=== PATIENT | female | born 1960 | race Caucasian/White ===

== ENCOUNTER → 2017-01-10 | Outpatient (CLI) | payer MEDICARE ==
--- NOTE | 2017-01-10 09:36 | RAD ---
Indication shortness of breath. Wheezing. Cough. History of asthma. Frontal and lateral views of the chest were obtained. Comparison is made to the most recent examination available 04/07/2012. There is mild cardiomegaly. There are changes in the left mid and lower lung field and to a lesser extent at the right lung base probably reflecting scar. These findings were suggested on the previous exam but are more apparent. There is interstitial prominence in the lungs. Some of this may be chronic representing fibrosis. Interstitial edema or an interstitial inflammatory process are not entirely excluded. There is no consolidated pneumonia. In the left upper lobe there is a density which is probably vascular. A parenchymal mass however is not entirely excluded. CT imaging of the chest should be considered. IMPRESSION: Mild cardiomegaly. Probable chronic pleural-parenchymal changes at the lung bases. Interstitial prominence. Some of this may be chronic. Superimposed edema or interstitial inflammation is not excluded Possible parenchymal mass/nodule in the left upper lobe. CT imaging of the chest should be considered
== END | disposition home or self-care (01) ==
LOC: DXRADRC 09:07
PROVIDERS: ATTEND Physician Assistant
DX: R91.8 Other nonspecific abnormal finding of lung field (principal); I51.7 Cardiomegaly; J45.909 Unspecified asthma, uncomplicated
CPT/HCPCS: 71020

== ENCOUNTER → 2017-01-31 | Outpatient (CLI) | payer MEDICARE ==
--- NOTE | 2017-01-31 13:20 | RAD ---
CT of the chest without contrast, 01/31/2017: History: Possible pulmonary nodule Noncontrast scans were obtained with multiplanar reconstructions produced. There are moderate scattered linear opacities in both lungs. These are most prominent in the medial aspects of both upper lobes and the right middle lobe. The appearance suggests discoid atelectasis and/or scarring. There is a 2 mm nodule in the left lateral costophrenic angle as seen on image 214 of series #4 which appears to be calcified. A similar small dense nodule is seen anteriorly in the right middle lobe on image 128 of series #4. These are compatible with granulomas. There is a tiny 2 mm nodule in the left lower lobe best seen on image 180 of series #4. It does not demonstrate definite calcification, however, a granulomatous origin is likely. No pulmonary mass is identified. There is no evidence of pleural fluid. There is only minimal calcific plaquing of the thoracic aorta without evidence of aneurysm. Moderate coronary artery calcifications are present. Jose calcifications are present at the left hilum. No mediastinal adenopathy is seen. IMPRESSION: 1. Moderate streaky bilateral pulmonary opacities compatible with atelectasis and/or scarring. 2. Several tiny pulmonary nodules are probably granulomas. 3. Extensive coronary artery disease. PQRS Compliance Statement: One or more of the following individualized dose reduction techniques were utilized for this examination: 1. Automated exposure control 2. Adjustment of the mA and/or kV according to patient size 3. Use of iterative reconstruction technique
== END | disposition home or self-care (01) ==
LOC: CT 09:47
PROVIDERS: ATTEND Physician Assistant
DX: I25.10 Atherosclerotic heart disease of native coronary artery without angina pectoris (principal); R91.8 Other nonspecific abnormal finding of lung field
CPT/HCPCS: 71250

== ENCOUNTER → 2017-05-07 | Outpatient (CLI) | payer MEDICARE ==
[~2017-05-07] MED LIST: IOHEXOL 240 MG/ML 50ML VIAL. ONE; IOHEXOL 300 MG/ML 75 ML VIAL. IV ONE
--- NOTE | 2017-05-07 10:19 | RAD ---
Indication abdominal pain. History of intestinal obstruction. Axial images through the abdomen and pelvis were obtained. 75 cc of Omnipaque 300 was administered intravenously. Oral contrast was also administered. No prior CT imaging of the abdomen or pelvis is available. There is some pleural-parenchymal scarring at the lung bases. The liver and spleen appear unremarkable. Clips are seen in the gallbladder fossa. The pancreas appears unremarkable. There are no adrenal masses and the kidneys appear unremarkable. In the pelvis no mass or inflammatory process is seen. There is no evidence of significant mechanical obstruction. IMPRESSION: No acute finding seen in the abdomen or pelvis. No evidence of significant mechanical obstruction seen. PQRS Compliance Statement: One or more of the following individualized dose reduction techniques were utilized for this examination: 1. Automated exposure control 2. Adjustment of the mA and/or kV according to patient size 3. Use of iterative reconstruction technique
== END | disposition home or self-care (01) ==
LOC: CT 08:39
PROVIDERS: ATTEND General Practice
DX: R10.84 Generalized abdominal pain (principal); J98.4 Other disorders of lung; I10 Essential (primary) hypertension; I25.10 Atherosclerotic heart disease of native coronary artery without angina pectoris; J45.909 Unspecified asthma, uncomplicated; Z87.19 Personal history of other diseases of the digestive system
CPT/HCPCS: 74177; Q9966; Q9967

== ENCOUNTER 2017-08-30 14:40 | Inpatient (IN) | payer MEDICARE ==
[~2017-08-30] VITALS: Ht 165.1 cm; Wt 153.0 kg
[2017-08-30] MEDS ORDERED: IV NORMAL SALINE 1,000ML 1,000 ML IV SCH (14:51)
[2017-08-30] MEDS ORDERED: ACETAMINOPHEN 500 MG TABLET PO ONE (15:30)
[2017-08-30] MEDS ORDERED: methylPREDNISolone SOD SUCC PF 125 MG/2 ML VIAL. IV ONE (15:30)
[2017-08-30] MEDS ORDERED: IPRATRPIUM/ALBUTEROL 0.5/2.5MG 3 ML NEBU. NEB ONE (15:30)
--- NOTE | 2017-08-30 15:43 | EKG ---
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 POSSIBLY ABNORMAL ECG RI6.01 No previous ECG available for comparison Electronically Signed On 09-01-2017 16:34:02 JEWEL SAWYER by Odell Camilo
[2017-08-30 15:48] LABS: INFLUENZA A PATIENT NEGATIVE (NEGATIVE); INFLUENZA B PATIENT NEGATIVE (NEGATIVE)
[2017-08-30 15:53] LABS: BASO % 1 % (0-3); EOS # 0.1 x10^3/uL (0.0-0.7); EOS % 2 % (0-3); HEMOGLOBIN 13.9 g/dL (12.0-15.5); LYMPH # 0.6 x10^3/uL (1.0-4.8); LYMPH % 8 % (24-48); MEAN CORPUSCULAR HEMOGLOBIN 28 pg (25-35); MEAN CORPUSCULAR HGB CONC 33 g/dL (31-37); MEAN CORPUSCULAR VOLUME 85 fL (79-100); MONO # 0.7 x10^3/uL (0.0-1.1); MONO % 9 % (0-9); NEUT # 6.3 x10^3uL (1.8-7.7); NEUT % 81 % (31-73); PLATELET COUNT 224 x10^3/uL (140-400); RED BLOOD COUNT 4.97 x10^6/uL (3.50-5.40); RED CELL DISTRIBUTION WIDTH 14.6 % (11.5-14.5); WHITE BLOOD COUNT 7.7 x10^3/uL (4.0-11.0)
[2017-08-30] MEDS: cefTRIAXone IV Push 1 GM VIAL. IVP SCH (17:02)
[2017-08-30 17:14] LABS: ALBUMIN 3.1 g/dL (3.4-5.0); ALBUMIN/GLOBULIN RATIO 0.8 (1.0-1.7); CALCIUM 8.7 mg/dL (8.5-10.1); CREATININE 0.9 mg/dL (0.6-1.0); GFR 64.3; POTASSIUM 4.6 mmol/L (3.5-5.1); TOTAL BILIRUBIN 0.4 mg/dL (0.2-1.0)
--- NOTE | 2017-08-30 17:58 | PHYS DOC ---
Adult General Chief Complaint Chief Complaint: SHORTNESS OF BREATH HPI HPI 57-year-old male patient with altered obesity and history of COPD without home oxygen complaining of productive cough with nasal congestion for the last 2 days. Patient complaining of increasing of shortness of breath and called 911. EMS reported that she had O2 sats of 85% at that improved with 2 L of oxygen to 94%. Patient complaining of generalized weakness and subjective fever and chills. Patient was febrile at arrival to ER. Review of Systems Review of Systems Constitutional: Reports fever and chills Eyes: Denies change in visual acuity, redness, or eye pain [] HENT: Reports nasal congestion or sore throat Respiratory: Reports cough and shortness of breath Cardiovascular: No additional information not addressed in HPI [] GI: Denies abdominal pain, nausea, vomiting, bloody stools or diarrhea [] : Denies dysuria or hematuria [] Musculoskeletal: Denies back pain or joint pain [] Integument: Denies rash or skin lesions [] Neurologic: Denies headache, focal weakness or sensory changes [] Endocrine: Denies polyuria or polydipsia [] All other systems were reviewed and found to be within normal limits, except as documented in this note. Current Medications Current Medications Current Medications Medications (Trade) Dose Ordered Sig/Breanna Start Time Stop Time Status Last Admin Dose Admin Acetaminophen (Tylenol) 1,000 mg 1X ONCE 08/30/17 15:30 08/30/17 15:31 DC 08/30/17 15:47 1,000 MG Albuterol/ Ipratropium (Duoneb) 3 ml 1X ONCE 08/30/17 15:30 08/30/17 15:31 DC 08/30/17 15:45 3 ML Ceftriaxone Sodium 1 gm/ Sodium Chloride 50 ml @ 100 mls/hr 1X ONCE 08/30/17 16:30 08/30/17 16:59 UNV Ceftriaxone Sodium (Rocephin) 1 gm Q24H 08/30/17 17:00 08/30/17 17:02 1 GM Methylprednisolone Sodium Succinate (SOLU-Medrol 125MG VIAL) 125 mg 1X ONCE 08/30/17 15:30 08/30/17 15:31 DC 08/30/17 15:47 125 MG Sodium Chloride 1,000 ml @ 1,000 mls/hr Q1H 08/30/17 14:51 08/30/17 15:50 DC 08/30/17 15:47 1,000 MLS/HR Allergies Allergies Allergies Coded Allergies Type Severity Reaction Last Updated Verified No Known Drug Allergies 05/07/17 No Physical Exam Physical Exam Constitutional: Well nourished, mild distress, non-toxic appearance, febrile. [ ] HENT: Normocephalic, atraumatic, bilateral external ears normal, oropharynx moist, pharyngeal erythema, no oral exudates, nose normal. [] Eyes: PERRLA, EOMI, conjunctiva normal, no discharge. [] Neck: Normal range of motion, no tenderness, supple, no stridor. [] Cardiovascular: Tachycardia, no murmur [] Lungs & Thorax: decreased of air movement, Abdomen: Bowel sounds normal, soft, no tenderness, no masses, no pulsatile masses. [] Skin: Left lower extremity chronic edema and erythema Back: No tenderness, no CVA tenderness. [] Extremities: No tenderness, no cyanosis, no clubbing, ROM intact, trace edema. [ ] Neurologic: Alert and oriented X 3, normal motor function, normal sensory function, no focal deficits noted. [] Psychologic: Affect normal, judgement normal, mood normal. [] Current Patient Data Vital Signs Vital Signs Date Time Temp Pulse Resp B/P (MAP) Pulse Ox O2 Delivery O2 Flow Rate FiO2 08/30/17 16:26 94 Nasal Cannula 3.0 Lab Results Laboratory Tests Test 08/30/17 15:10 08/30/17 15:35 08/30/17 16:32 Influenza Type A (Rapid) Negative (NEGATIVE) Influenza Type B (Rapid) Negative (NEGATIVE) White Blood Count 7.7 x10^3/uL (4.0-11.0) Red Blood Count 4.97 x10^6/uL (3.50-5.40) Hemoglobin 13.9 g/dL (12.0-15.5) Hematocrit 42.0 % (36.0-47.0) Mean Corpuscular Volume 85 fL (79-100) Mean Corpuscular Hemoglobin 28 pg (25-35) Mean Corpuscular Hemoglobin Concent 33 g/dL (31-37) Red Cell Distribution Width 14.6 % (11.5-14.5) H Platelet Count 224 x10^3/uL (140-400) Neutrophils (%) (Auto) 81 % (31-73) H Lymphocytes (%) (Auto) 8 % (24-48) L Monocytes (%) (Auto) 9 % (0-9) Eosinophils (%) (Auto) 2 % (0-3) Basophils (%) (Auto) 1 % (0-3) Neutrophils # (Auto) 6.3 x10^3uL (1.8-7.7) Lymphocytes # (Auto) 0.6 x10^3/uL (1.0-4.8) L Monocytes # (Auto) 0.7 x10^3/uL (0.0-1.1) Eosinophils # (Auto) 0.1 x10^3/uL (0.0-0.7) Basophils # (Auto) 0.0 x10^3/uL (0.0-0.2) Sodium Level 131 mmol/L (136-145) L Potassium Level 4.6 mmol/L (3.5-5.1) Chloride Level 95 mmol/L (98-107) L Carbon Dioxide Level 31 mmol/L (21-32) Anion Gap 5 (6-14) L Blood Urea Nitrogen 14 mg/dL (7-20) Creatinine 0.9 mg/dL (0.6-1.0) Estimated GFR (Cockcroft-Gault) 64.3 BUN/Creatinine Ratio 16 (6-20) Glucose Level 304 mg/dL (70-99) H Lactic Acid Level 1.8 mmol/L (0.4-2.0) Calcium Level 8.7 mg/dL (8.5-10.1) Total Bilirubin 0.4 mg/dL (0.2-1.0) Aspartate Amino Transferase (AST) 10 U/L (15-37) L Alanine Aminotransferase (ALT) 17 U/L (14-59) Alkaline Phosphatase 100 U/L (46-116) Troponin I Quantitative 0.031 ng/mL (0-0.055) MQ-Yif-Q-Type Natriuretic Peptide 549 pg/mL (0-124) H Total Protein 7.0 g/dL (6.4-8.2) Albumin 3.1 g/dL (3.4-5.0) L Albumin/Globulin Ratio 0.8 (1.0-1.7) L EKG EKG EKG interpreted by me. EKG at 1537 showed heart rate of 102 with sinus tachycardia, left axis deviation, poor R-wave progress in anteroseptal dates, no acute ST and T-wave elevation Radiology/Procedures Radiology/Procedures Chest x-ray interpreted by me and did not show acute finding[] Course & Med Decision Making Course & Med Decision Making Pertinent Labs and Imaging studies reviewed. (See chart for details) Evaluation of patient in ER showed 57-year-old female patient brought in by EMS because of hypoxia patient had temperature of 101 at arrival to ER. Patient treated with IV fluid and Tylenol and albuterol and DuoNeb and felt better. For a test was negative. Chest x-ray did not show infiltration in patient did not have leukocytosis on elevation of lactic acid. Patient had O2 sats of 92% with 2 L of oxygen and did not tolerate ABG blood draw and refused to have ABG. Plan to admit patient with diagnosis of COPD exacerbation and hypoxia. Dr. Monet accepted admission at 1735. Dragon Disclaimer Dragon Disclaimer This electronic medical record was generated, in whole or in part, using a voice recognition dictation system. Departure Departure: Impression: Primary Impression: COPD exacerbation Additional Impressions: Hypoxia Fever Uncontrolled diabetes mellitus Morbid obesity Elevated brain natriuretic peptide (BNP) level Disposition: 09 ADMITTED INPATIENT (At 1745) Admitting Physician: Vicki Monet Condition: IMPROVED Referrals: LONNIE VILLARREAL (PCP) Problem Qualifiers MARILYN YU MD Aug 30, 2017 17:57
[2017-08-30] MEDS: IPRATRPIUM/ALBUTEROL 0.5/2.5MG 3 ML NEBU. NEB SCH (20:15)
[2017-08-30] MEDS ORDERED: DEXTROSE 50% 25 GM / 50ML DISP.SYRIN. IV PRN (20:30)
--- NOTE | 2017-08-30 20:39 | RAD ---
Exam: AP portable chest History: Shortness of breath. Comparison: None. Findings: Examination is limited as there is thought to be underpenetration secondary to patient body habitus. Cardiac silhouette is probably at least at the upper limits of normal for size. No pneumothorax or gross pleural effusion is seen. Pulmonary vascularity may be increased. Evaluation for infiltrate is limited. Impression: 1. Limited examination. 2. There may be pulmonary vascular congestion. 3. Evaluation for infiltrate in the lower lung hoffman is limited. Electronically signed by: Santi Lima MD (08/30/2017 8:36 PM) [facility]
[2017-08-30] MEDS ORDERED: INSU100I27 SQ (21:11)
[2017-08-30] MEDS ORDERED: DIPH50CA PO (21:11)
[2017-08-30] MEDS ORDERED: METF10002 PO (21:11)
[2017-08-30] MEDS ORDERED: CARV25TA2 PO (21:11)
[2017-08-30] MEDS ORDERED: GLIM4TAB2 PO (21:11)
[2017-08-30] MEDS ORDERED: PRAV40TA2 PO (21:11)
[2017-08-30] MEDS ORDERED: FURO40TA4 PO (21:11)
[2017-08-30] MEDS ORDERED: CLOP75TA PO (21:11)
[2017-08-30] MEDS ORDERED: DULO60CA6 PO (21:11)
[2017-08-30] MEDS ORDERED: GABA600T2 PO (21:11)
[2017-08-30] MEDS ORDERED: BUDE10.2 IH (21:11)
[2017-08-30] MEDS ORDERED: LISI10TA2 PO (21:11)
[2017-08-30] MEDS: LACTOBACILLUS RHAMNOSUS GG 1 CAPSULE. PO SCH (22:15)
[2017-08-30] MEDS: CLOPIDOGREL BISULFATE 75 MG TABLET PO SCH (22:15)
[2017-08-30] MEDS: IV NORMAL SALINE 1,000ML 1,000 ML IV SCH (22:15)
[2017-08-30] MEDS: GABAPENTIN 400 MG CAPSULE. PO SCH (22:16)
[2017-08-30] MEDS: diphenhydrAMINE HCL 25 MG CAPSULE PO SCH (22:16)
[2017-08-30] MEDS: ATORVASTATIN CALCIUM 10 MG TABLET. PO SCH (22:16)
[2017-08-30] MEDS: CARVEDILOL 12.5 MG TABLET PO SCH (22:16)
[2017-08-30 22:26] VITALS: BP 165/82
[2017-08-30] MEDS: INSULIN DETEMIR 300 UNITS/3 ML INSULN.PEN. SQ SCH (23:50)
[2017-08-30] MEDS: INSULIN ASPART 300 UNITS/3 ML INSULN.PEN SQ SCH (23:51)
[2017-08-31] MEDS: IPRATRPIUM/ALBUTEROL 0.5/2.5MG 3 ML NEBU. NEB SCH ×4 (06:10→20:00)
[2017-08-31] MEDS: IV NORMAL SALINE 1,000ML 1,000 ML IV SCH ×2 (06:30→16:30)
[2017-08-31 06:52] VITALS: BP 173/71
[2017-08-31 07:22] LABS: CALCIUM 8.7 mg/dL (8.5-10.1); CREATININE 0.6 mg/dL (0.6-1.0); GFR 102.7; MAGNESIUM 1.7 mg/dL (1.8-2.4); POTASSIUM 4.7 mmol/L (3.5-5.1)
[2017-08-31] MEDS: metFORMIN 500 MG TABLET PO SCH ×2 (07:59→17:11)
[2017-08-31] MEDS: LACTOBACILLUS RHAMNOSUS GG 1 CAPSULE. PO SCH ×2 (08:00→20:46)
[2017-08-31] MEDS: LISINOPRIL 10 MG TABLET PO SCH (08:00)
[2017-08-31] MEDS: CARVEDILOL 12.5 MG TABLET PO SCH ×2 (08:00→17:11)
[2017-08-31] MEDS: FUROSEMIDE 40 MG TABLET PO SCH (08:00)
[2017-08-31] MEDS: GABAPENTIN 400 MG CAPSULE. PO SCH ×2 (08:01→20:45)
[2017-08-31] MEDS: DULoxetine HCL 60 MG CAPSULE.DR PO SCH (08:01)
[2017-08-31] MEDS: GLIMEPIRIDE 2 MG TABLET PO SCH ×2 (08:01→17:11)
[2017-08-31] MEDS: INSULIN ASPART 300 UNITS/3 ML INSULN.PEN SQ SCH ×4 (08:08→22:42)
[2017-08-31] MEDS: methylPREDNISolone SOD SUCC PF 40 MG/ML VIAL. IV SCH ×2 (09:39→20:45)
[2017-08-31] MEDS: ENOXAPARIN ** NOTE DOSE ** SYRINGE SQ SCH ×2 (09:40→22:42)
[2017-08-31] MEDS: INSULIN DETEMIR 300 UNITS/3 ML INSULN.PEN. SQ SCH ×2 (09:46→22:41)
[2017-08-31 09:48] LABS: BASO % 0 % (0-3); EOS % 0 % (0-3); HEMOGLOBIN 13.5 g/dL (12.0-15.5); LYMPH # 0.6 x10^3/uL (1.0-4.8); LYMPH % 12 % (24-48); MEAN CORPUSCULAR HEMOGLOBIN 28 pg (25-35); MEAN CORPUSCULAR HGB CONC 33 g/dL (31-37); MEAN CORPUSCULAR VOLUME 86 fL (79-100); MONO # 0.4 x10^3/uL (0.0-1.1); MONO % 9 % (0-9); NEUT # 3.8 x10^3uL (1.8-7.7); NEUT % 78 % (31-73); PLATELET COUNT 218 x10^3/uL (140-400); RED CELL DISTRIBUTION WIDTH 14.7 % (11.5-14.5); WHITE BLOOD COUNT 4.8 x10^3/uL (4.0-11.0)
--- NOTE | 2017-08-31 09:50 | HP ---
ADMIT DATE: 08/30/2017 REASON FOR ADMISSION: Shortness of breath. HISTORY OF PRESENT ILLNESS: This is a 57-year-old female with morbid obesity and history of COPD, who presented with complaints of a 2-day history of a cough, sputum production and congestion for 2 days with increasingly short of breath. She called 911 and her O2 sats were 85% at that time, they improved with 2 liters of oxygen to 94%. Also, reported temperature of 102 at home and some chills. PAST MEDICAL HISTORY: Morbid obesity, diabetes, hypertension, hypothyroidism, coronary artery disease with 10 stents, COPD. PAST SURGICAL HISTORY: Stent placement. She states she has 10 stents, 2004, 2006, 2008 and 2010. ALLERGIES: None. MEDICATIONS: Reviewed and reconciled. REVIEW OF SYSTEMS: Positive for fever, chills. HABITS: Quit smoking in 2003. No alcohol. REVIEW OF SYSTEMS: Positive for problems with her weight. No exercise. No urinary urgency or frequency. Denies sore throat. Positive yellow sputum. Positive shortness of breath, no chest pain. OBJECTIVE: VITAL SIGNS: Blood pressure 173/71, pulse 81, temperature 97.7, pulse ox 94% on 3 liters. Initial temperature was 100.6. HEENT: The patient's external canals are normal. Her eyes are clear. Throat with some postnasal drip, slightly green-tinged. NECK: Supple, without adenopathy. LUNGS: With a few scattered wheezes. CARDIOVASCULAR: Regular rhythm and rate. ABDOMEN: Large and obese, nontender. EXTREMITIES: Without edema. LABORATORY DATA: Normal CBC. Chemistry, glucoses in the 300s, magnesium 1.7. BNP 549. Troponin was 0.031, now it is 0.017. IMAGING: Chest x-ray shows some probable pulmonary vascular congestion, no pneumonia. ASSESSMENT: 1. Possible mild congestive heart failure. 2. Acute bronchitis. 3. Chronic obstructive pulmonary disease. 4. Hypoxemia. 5. Morbid obesity. 6. Type 2 diabetes with hyperglycemia. PLAN: Echocardiogram. Continue Lasix. Continue oxygen, breathing treatments and switch her to doxycycline from ceftriaxone. NAS RAMIREZ DO DR: DEEPTI/siri JOB#: [id number] / [id number]
[2017-08-31 11:21] VITALS: BP 179/95
[2017-08-31] MEDS ORDERED: cloNIDine HCL 0.1 MG TABLET PO ONE (11:45)
[2017-08-31] MEDS ORDERED: cloNIDine HCL 0.1 MG TABLET PO PRN (11:45)
[2017-08-31 15:08] VITALS: BP 168/82
[2017-08-31] MEDS ORDERED: INSULIN ASPART 300 UNITS/3 ML INSULN.PEN SQ ONE (17:00)
[2017-08-31] MEDS: cefTRIAXone IV Push 1 GM VIAL. IVP SCH (17:18)
[2017-08-31 19:33] VITALS: BP 134/69
[2017-08-31] MEDS: diphenhydrAMINE HCL 25 MG CAPSULE PO SCH (20:45)
[2017-08-31] MEDS: ATORVASTATIN CALCIUM 10 MG TABLET. PO SCH (20:46)
[2017-08-31] MEDS: CLOPIDOGREL BISULFATE 75 MG TABLET PO SCH (20:46)
[2017-08-31 23:35] VITALS: BP 164/70
[2017-09-01] MEDS: IPRATRPIUM/ALBUTEROL 0.5/2.5MG 3 ML NEBU. NEB SCH ×3 (06:20→16:00)
[2017-09-01 06:30] VITALS: BP 146/64
[2017-09-01] MEDS ORDERED: INSULIN DETEMIR 300 UNITS/3 ML INSULN.PEN. SQ SCH (07:00)
[2017-09-01] MEDS: GLIMEPIRIDE 2 MG TABLET PO SCH (08:16)
[2017-09-01] MEDS: CARVEDILOL 12.5 MG TABLET PO SCH (08:17)
[2017-09-01] MEDS: metFORMIN 500 MG TABLET PO SCH (08:24)
[2017-09-01] MEDS: DULoxetine HCL 60 MG CAPSULE.DR PO SCH (08:25)
[2017-09-01] MEDS: LACTOBACILLUS RHAMNOSUS GG 1 CAPSULE. PO SCH (08:25)
[2017-09-01] MEDS: GABAPENTIN 400 MG CAPSULE. PO SCH (08:26)
[2017-09-01] MEDS: FUROSEMIDE 40 MG TABLET PO SCH (08:27)
[2017-09-01] MEDS: LISINOPRIL 10 MG TABLET PO SCH (08:27)
[2017-09-01] MEDS: INSULIN ASPART 300 UNITS/3 ML INSULN.PEN SQ SCH ×3 (09:00→16:53)
[2017-09-01] MEDS: INSULIN DETEMIR 300 UNITS/3 ML INSULN.PEN. SQ SCH (09:00)
[2017-09-01 09:59] VITALS: BP 184/64
[2017-09-01] MEDS: ENOXAPARIN ** NOTE DOSE ** SYRINGE SQ SCH (10:27)
[2017-09-01] MEDS: methylPREDNISolone SOD SUCC PF 40 MG/ML VIAL. IV SCH (10:28)
[2017-09-01 15:02] VITALS: BP 192/87
[2017-09-01 15:04] VITALS: BP 172/98
[2017-09-01] MEDS ORDERED: DOXY100C2 PO (15:14)
--- NOTE | 2017-09-01 15:43 | CARD ---
MR#: [id number] Date of Study: 09/01/2017 Ordering Physician: NAS RAMIREZ, Referring Physician: NAS RAMIREZ Tech: Ghassan Palacios [facility] APPROVED REPORT EXAM: Two-dimensional and M-mode echocardiogram with Doppler and color Doppler. Other Information Quality : AverageHR: 84bpm INDICATION COPD Cardiomyopathy RISK FACTORS Hypertension Obesity Family History Smoking 2D DIMENSIONS Left Atrium(2D)4.1 (1.6-4.0cm)IVSd1.7 (0.7-1.1cm) Aortic Root(2D)2.7 (2.0-3.7cm)LVDd4.1 (3.9-5.9cm) LVOT Diameter2.0 (1.8-2.4cm)PWd1.6 (0.7-1.1cm) LVDs3.0 (2.5-4.0cm)FS (%) 27.6 % SV40.5 mlLVEF(%)54.0 (>50%) Aortic Valve AoV Peak Sylvain.169.8cm/sAoV VTI36.9cm AO Peak GR.11.5mmHgLVOT Peak Sylvain.101.4cm/s LVOT VTI 29.51cmAO Mean GR.6mmHg DAVIDE (VMAX)1.33ek8SBF (VTI)2.55cm2 Mitral Valve MV E Yeylrfag377.8cm/sMV DECEL BHAJ609hw MV A Pxbwfbxj698.4cm/sE/A Ratio1.2 Pulmonary Valve PV Peak Kzswjmiq19.3cm/sPV Peak Grad.4mmHg Pulmonary Vein S1 Gsloiybh96.8cm/sD2 Nptbbtpm83.8cm/s LEFT VENTRICLE Technically difficult study. The left ventricle is normal size. There is mild concentric left ventric ular hypertrophy. The left ventricular systolic function is normal. Left ventricular ejection fractio n is 55-60%. There is normal LV segmental wall motion. The left ventricular diastolic function and fi lling is normal for age. RIGHT VENTRICLE The right ventricle is normal size. The right ventricle is mildly hypertrophied. The right ventricula r systolic function is normal. ATRIA The left atrium is borderline dilated. The right atrium is not well visualized. The interatrial septu m is intact with no evidence for an atrial septal defect or patent foramen ovale as noted on 2-D or D oppler imaging. AORTIC VALVE The aortic valve is thickened but opens well. Doppler and Color Flow revealed no significant aortic r egurgitation. There is no significant aortic valvular stenosis. There is no aortic valvular vegetatio n. MITRAL VALVE Mitral annular calcification is mild. The mitral valve is thickened but opens well. There is no evide nce of mitral valve prolapse. There is no mitral valve stenosis. Doppler and Color Flow revealed trac e mitral valve regurgitation. TRICUSPID VALVE The tricuspid valve is not well visualized. Doppler and Color Flow revealed trace tricuspid regurgita tion. There is no tricuspid valve stenosis. PULMONIC VALVE The pulmonic valve is not well visualized. Doppler and Color Flow revealed no pulmonic valvular regur gitation. There is no pulmonic valvular stenosis. GREAT VESSELS The aortic root is normal in size. The IVC is dilated. The IVC collapses <50% with inspiration. PERICARDIAL EFFUSION There is no pleural effusion. There is no evidence of significant pericardial effusion. Critical Notification Critical Value: No <Conclusion> Technically difficult study. The left ventricle is normal size. The left ventricular systolic function is normal. Left ventricular ejection fraction is 55-60%. There is mild concentric left ventricular hypertrophy. There is no significant aortic valvular stenosis. Doppler and Color Flow revealed no significant aortic regurgitation. Doppler and Color Flow revealed trace mitral valve regurgitation. Doppler and Color Flow revealed trace tricuspid regurgitation. Signed by : Odell Camilo MD Electronically Approved : 09/01/2017 15:43:01
--- NOTE | 2017-09-01 21:58 | DS ---
DATE OF DISCHARGE: 09/01/2017 HOSPITAL COURSE: The patient was admitted with acute bronchitis, chronic obstructive pulmonary disease exacerbation and hypoxemia. She was treated with IV antibiotic and steroids and she is did actually very well. PHYSICAL EXAMINATION: GENERAL: When I saw her today, she was sitting comfortably in her chair, in no apparent respiratory distress, pale, but no jaundice, cyanosis, lymphadenopathy or thyromegaly. No jugular venous distention. No limb edema. VITAL SIGNS: Her heart rate was 71, blood pressure was 170/60, temperature was 97.6, respiratory rate was 20, and oxygen saturation was 94%. HEAD, EYES, EARS, NOSE AND THROAT: Normocephalic, atraumatic. NECK: Supple. HEART: Showed normal first and second sounds. No gallop, rub or murmur. CHEST: Clear to auscultation. No crepitation or rhonchi. ABDOMEN: Distended, soft, nontender. NEUROLOGIC: She was awake, alert, responding appropriately. EXTREMITIES: Intact. She moves extremities without difficulty, ambulates without assistance or assistive devices. LABORATORY DATA: Her lab work this morning showed a white cell count 4800, hemoglobin 13.5, hematocrit 41, MCV 86 and platelet count of 218,000. Her chemistry showed a serum sodium 136, potassium 4.7, chloride 100, bicarbonate 28, anion gap of 8, BUN 15, creatinine 0.6, estimated GFR was 103 mL per minute. Her calcium was 8.7 and magnesium was 1.7. DISCHARGE MEDICATIONS: The patient will be discharged home to continue on her lisinopril 10 mg once a day, furosemide 40 mg once a day, duloxetine 60 mg once a day, metformin 1000 mg p.o. b.i.d., glimepiride 4 mg twice a day, atorvastatin 10 mg at bedtime, gabapentin 1200 mg twice a day, diphenhydramine 50 mg at bedtime, carvedilol 25 mg twice a day with meals, Levemir insulin 35 units at bedtime, Plavix 75 mg once a day, lactobacillus rhamnosus 1 capsule twice a day and DuoNeb 4 times a day. She will be discharged on doxycycline 100 mg twice a day for 7 more days and tapering a course of steroids. FINAL DISCHARGE DIAGNOSES: 1. Acute bronchitis. 2. Chronic obstructive pulmonary disease exacerbation. 3. Hypertension. 4. Type 2 diabetes. 5. Hypothyroidism. 6. Morbid obesity. 7. Coronary artery disease, status post 10 stents. JORDANA MEHTA MD DR: PANCHITO/siri JOB#: [id number] / [id number]
== END 2017-09-01 17:04 | disposition home or self-care (01) | DRG 871 ==
LOC: ER 14:40 → 1 SOUTH 17:45
PROVIDERS: ADMIT Family Medicine; ATTEND Family Medicine
DX: A41.9 Sepsis, unspecified organism (principal); J96.21 Acute and chronic respiratory failure with hypoxia; I50.32 Chronic diastolic (congestive) heart failure; J44.0 Chronic obstructive pulmonary disease with (acute) lower respiratory infection; Z68.43 Body mass index [BMI] 50.0-59.9, adult; J44.1 Chronic obstructive pulmonary disease with (acute) exacerbation; E11.65 Type 2 diabetes mellitus with hyperglycemia; E66.01 Morbid (severe) obesity due to excess calories; J20.9 Acute bronchitis, unspecified; I10 Essential (primary) hypertension; E03.9 Hypothyroidism, unspecified; I25.10 Atherosclerotic heart disease of native coronary artery without angina pectoris; Z87.891 Personal history of nicotine dependence; Z95.5 Presence of coronary angioplasty implant and graft
CPT/HCPCS: 36415; 71045; 80048; 80053; 82947; 83605; 83735; 83880; 84484; 85025; 87040; 87804; 93005; 93306; 94640; 96361; 96374; J0696; J1650; J1815; J2920; J2930; J7620; Q0163; 99285-25; J7030

== ENCOUNTER 2019-08-17 00:50 | Emergency (ER) | payer MEDICARE ==
[~2019-08-17] VITALS: Ht 317.5 cm; Wt 125.0 kg
[~2019-08-17 00:50] MED LIST changes: +BUDE10.2 IH; +CARV25TA2 PO; +CLOP75TA PO; +DIPH50CA PO; +DOXY100C2 PO; +DULO60CA6 PO; +FURO40TA4 PO; +GABA600T7 PO; +GLIM4TAB8 PO; +INSU100I27 SQ; -IOHEXOL 240 MG/ML 50ML VIAL. ONE; -IOHEXOL 300 MG/ML 75 ML VIAL. IV ONE; +LISI10TA2 PO; +METF10007 PO; +PRAV40TA2 PO
--- NOTE | 2019-08-17 00:59 | PHYS DOC ---
Past History Past Medical History: COPD, Diabetes, Hypertension, Other Past Surgical History: No Surgical History Alcohol Use: None Drug Use: None Adult General Chief Complaint Chief Complaint: chest pain [facility] HPI Patient is a 59-year-old female who presents with complaint of left-sided chest pain that started earlier this evening. She also indicates that she is having shortness of breath. Patient rates pain at a 6 to a 7 out of 10. She states that she has had some nausea but no vomiting. Patient is not aware of any exacerbating or alleviating factors. She does indicate that she has a history of COPD and wears oxygen at all times. Per EMS, first responders on scene had measured patient's oxygen saturation is 74% on 3 L. They do indicate that patient's auction tubing was very long. Patient describes pain in her chest as like a deep, dull ache. She states that radiates up her left neck.[] Review of Systems Review of Systems Constitutional: Denies fever or chills [] Respiratory: Complains of shortness of breath [] Cardiovascular: No additional information not addressed in HPI [] GI: Denies abdominal pain, nausea, vomiting or diarrhea [] Integument: Denies rash or skin lesions [] Neurologic: Denies headache, focal weakness or sensory changes [] All other systems were reviewed and found to be within normal limits, except as documented in this note. Allergies Allergies Allergies Coded Allergies Type Severity Reaction Last Updated Verified No Known Drug Allergies 05/07/17 No Physical Exam Physical Exam Constitutional: Well developed, well nourished, no acute distress, non-toxic appearance. [] HENT: Normocephalic, atraumatic, bilateral external ears normal, oropharynx m oist, no oral exudates, nose normal. [] Eyes: PERRLA, EOMI, conjunctiva normal, no discharge. [] Neck: Normal range of motion, no tenderness, supple, no stridor. [] Cardiovascular: Regular rate and rhythm[] Lungs & Thorax: Fine rhonchi are noted bilaterally to auscultation [] Abdomen: Bowel sounds normal, soft, no tenderness. [] Skin: Warm, dry, no erythema, no rash. [] Extremities: No tenderness, no cyanosis, no clubbing, ROM intact, with 2-3+ lower extremity pitting edema. [] Neurologic: Alert and oriented X 3, no focal deficits noted. [] EKG EKG EKG demonstrates normal sinus rhythm with rate of 79.[] Radiology/Procedures Radiology/Procedures [] Impressions: PROCEDURE: PORTABLE CHEST 1V EXAM: AP View of the chest DATE: 08/17/2019 12:54 AM INDICATION: Chest pain COMPARISON: 08/30/2017 FINDINGS: Cardiomegaly with bilateral perihilar and lung base airspace opacities and bilateral pleural effusions. No pneumothorax. The patient's chin obscures the lung apices. IMPRESSION: Cardiomegaly with bilateral perihilar and lung base airspace opacities and bilateral pleural effusions. Although these findings are favored to represent pulmonary edema, multifocal pneumonia would also similar appearance. Electronically signed by: Alonzo Mccabe MD (08/17/2019 2:14 AM) [facility] [id number] Course & Med Decision Making Course & Med Decision Making Pertinent Labs and Imaging studies reviewed. (See chart for details) Patient moved to room upon arrival was evaluated by your medical staff after w hich an IV was established and blood work was drawn. Patient given IV morphine for pain. Patient did have resolution of pain after receiving morphine. Blood work is returned with significant findings to include markedly elevated blood sugar for which she has been treated with IV insulin along with elevated BNP and troponin. Chest x-ray is consistent with CHF. Patient has been given IV Lasix, 60 mg. Patient is also being initiated on IV heparin protocol. Upon completion of workup, findings were reviewed with patient and family and patient is requesting transfer to [facility] as that is where all of her specialty care is. [facility] has been contacted and Dr. Harkins will accept patient in transfer. Dragdinesh Disclaimer Vannesa Disclaimer This electronic medical record was generated, in whole or in part, using a voice recognition dictation system. Departure Departure: Impression: Primary Impression: NSTEMI (non-ST elevated myocardial infarction) Additional Impressions: CHF (congestive heart failure) Uncontrolled type 2 diabetes mellitus with hyperglycemia Disposition: 02 XFER SHT-TRM HOSP Condition: IMPROVED Referrals: LONNIE VILLARREAL (PCP) Problem Qualifiers Additional Impressions: CHF (congestive heart failure) Heart failure type: unspecified Heart failure chronicity: unspecified Qualified Codes: I50.9 - Heart failure, unspecified STEPHANIE BLANCO Jr. DO Aug 17, 2019 00:59
[2019-08-17] MEDS ORDERED: MORPHINE SULFATE 4 MG/ML DISP.SYRIN. IV/SQ PRN (01:00)
[2019-08-17] MEDS ORDERED: ONDANSETRON PF 4 MG/2 ML VIAL. IVP ONE (01:15)
[2019-08-17 01:49] LABS: BASO % 1 % (0-3); EOS # 0.3 x10^3/uL (0.0-0.7); EOS % 5 % (0-3); HEMATOCRIT 30.8 % (36.0-47.0); HEMOGLOBIN 9.4 g/dL (12.0-15.5); LYMPH # 0.8 x10^3/uL (1.0-4.8); LYMPH % 17 % (24-48); MEAN CORPUSCULAR HEMOGLOBIN 26 pg (25-35); MEAN CORPUSCULAR HGB CONC 31 g/dL (31-37); MEAN CORPUSCULAR VOLUME 84 fL (79-100); MONO # 0.5 x10^3/uL (0.0-1.1); MONO % 11 % (0-9); NEUT # 3.3 x10^3uL (1.8-7.7); NEUT % 66 % (31-73); PLATELET COUNT 293 x10^3/uL (140-400); RED BLOOD COUNT 3.69 x10^6/uL (3.50-5.40); RED CELL DISTRIBUTION WIDTH 16.2 % (11.5-14.5); WHITE BLOOD COUNT 4.9 x10^3/uL (4.0-11.0)
[2019-08-17 02:08] LABS: ALBUMIN 2.8 g/dL (3.4-5.0); ALBUMIN/GLOBULIN RATIO 0.7 (1.0-1.7); CALCIUM 8.3 mg/dL (8.5-10.1); CREATININE 1.1 mg/dL (0.6-1.0); GFR 50.7; MAGNESIUM 2.2 mg/dL (1.8-2.4); POTASSIUM 4.9 mmol/L (3.5-5.1); TOTAL BILIRUBIN 0.3 mg/dL (0.2-1.0); TOTAL PROTEIN 6.7 g/dL (6.4-8.2)
--- NOTE | 2019-08-17 02:17 | RAD ---
EXAM: AP View of the chest DATE: 08/17/2019 12:54 AM INDICATION: Chest pain COMPARISON: 08/30/2017 FINDINGS: Cardiomegaly with bilateral perihilar and lung base airspace opacities and bilateral pleural effusions. No pneumothorax. The patient's chin obscures the lung apices. IMPRESSION: Cardiomegaly with bilateral perihilar and lung base airspace opacities and bilateral pleural effusions. Although these findings are favored to represent pulmonary edema, multifocal pneumonia would also similar appearance. Electronically signed by: Alonzo Mccabe MD (08/17/2019 2:14 AM) [facility]
[2019-08-17] MEDS ORDERED: HEPARIN 25,000UTS/250ML PREMIX 250 ML IV PRN (02:30)
[2019-08-17] MEDS ORDERED: INSULIN REGULAR 100 UNIT/ML 3ML VIAL. IV ONE (02:30)
[2019-08-17] MEDS ORDERED: FUROSEMIDE 40 MG/4 ML VIAL IVP ONE (02:30)
[2019-08-17] MEDS ORDERED: HEPARIN for IV BOLUS 10,000 UNIT/10 ML VIAL. IV ONE (02:30)
[2019-08-17] MEDS ORDERED: HEPARIN for IV BOLUS 10,000 UNIT/10 ML VIAL. IV PRN (02:30)
[2019-08-17] MEDS ORDERED: IPRATRPIUM/ALBUTEROL 0.5/2.5MG 3 ML NEBU. NEB ONE (03:15)
[2019-08-17 03:25] VITALS: BP 145/64
--- NOTE | 2019-08-17 22:24 | EKG ---
[address] [address] Test Date: 2019-08-17 Test Time: 00:57:17 Pat Name: LOIS MALDONADO Department: Room: Gender: F Paediatrician: : 1960 Requested By: STEPHANIE BLANCO Order Number: [id number] Reading MD: Measurements Intervals [place] Rate: 79 P: 49 [place]: 176 QRS: 12 QRSD: 88 T: 43 QT: 404 QTc: 464 Interpretive Statements SINUS RHYTHM R-S TRANSITION ZONE IN V LEADS DISPLACED TO THE LEFT QRS(T) CONTOUR ABNORMALITY CONSIDER ANTEROSEPTAL MYOCARDIAL DAMAGE POSSIBLY ABNORMAL ECG RI6.01 No previous ECG available for comparison
== END 2019-08-17 04:25 | disposition short-term general hospital (02) ==
LOC: ER 00:50
DX: I21.4 Non-ST elevation (NSTEMI) myocardial infarction (principal); I11.0 Hypertensive heart disease with heart failure; I50.9 Heart failure, unspecified; E11.65 Type 2 diabetes mellitus with hyperglycemia; J44.9 Chronic obstructive pulmonary disease, unspecified
CPT/HCPCS: 36415; 71045; 80053; 82947; 83735; 83880; 84484; 85025; 85610; 85730; 93005; 94640; 96365; 96366; 96375; 96376; 99285; J1644; J1815; J1940; J2270; J2405; J7620

== ENCOUNTER 2021-05-25 15:42 | Emergency (ER) | payer MEDICARE ==
[~2021-05-25] VITALS: Ht 317.5 cm; Wt 153.0 kg
[~2021-05-25 15:42] MED LIST changes: -DIPH50CA PO; +DIPH50CA16 PO; -DOXY100C2 PO; +DOXY100C3 PO; -DULO60CA6 PO; +DULO60CA7 PO; +LISI10TA16 PO; -LISI10TA2 PO
--- NOTE | 2021-05-25 17:00 | PHYS DOC ---
Past History Past Medical History: COPD, Diabetes, Hypertension, Other Additional Past Medical Histor: obesity (LAURITA RAMOS) Past Surgical History: No Surgical History (LAURITA RAMOS) Alcohol Use: None Drug Use: None (LAURITA RAMOS) General Adult EDM: Chief Complaint: FOOT INJURY PAIN HPI: HPI: Patient is a 60 year old diabetic female with additional past medical history of HLD, peripheral neuropathy, hypertension, GERD, COPD who presents from her picker box operator office for further evaluation and management of left foot ulcerations. Patient reports that her picker box operator had concern for osteomyelitis of the second metatarsal. She had x-rays, wound cultures and the rest of her routine foot care performed in the office. Patient reports that she has been feeling unwell and fatigued for the past week, possibly longer. She reports that the erythema has extended beyond the markings that her picker box operator placed earlier today. Patient has no other complaints at this time. (LAURITA RAMOS) Review of Systems: Review of Systems: 12 systems reviewed. ROS negative except as mentioned in HPI. (LAURITA RAMOS) Allergies: Allergies: Allergies Coded Allergies Type Severity Reaction Last Updated Verified latex Allergy Intermediate Hives 08/17/19 Yes (LAURITA RAMOS) Physical Exam: PE: Constitutional: Obese, well groomed, no acute distress, non-toxic appearance. Cardiovascular: Heart rate regular rhythm, no murmur. Lungs & Thorax: Breath sounds diminished throughout, consistent with COPD. Extremities: Prior amputation of digit 2 on left foot appreciated. Patient has hyperkeratotic skin at the distal left foot. 2 separate full-thickness ulcers are noted on the pad of the left foot just proximal to where digit 2 would lie, surrounding erythema without fluctuance. No tenderness, no cyanosis, no clubbing, ROM intact, no edema. (LAURITA RAMOS) Current Patient Data: Labs: Laboratory Tests Test 05/25/21 17:05 White Blood Count 6.7 x10^3/uL (4.0-11.0) Red Blood Count 3.55 x10^6/uL (3.50-5.40) Hemoglobin 9.6 g/dL (12.0-15.5) Hematocrit 29.6 % (36.0-47.0) Mean Corpuscular Volume 83 fL (79-100) Mean Corpuscular Hemoglobin 27 pg (25-35) Mean Corpuscular Hemoglobin Concent 33 g/dL (31-37) Red Cell Distribution Width 13.8 % (11.5-14.5) Platelet Count 316 x10^3/uL (140-400) Neutrophils (%) (Auto) 64 % (31-73) Lymphocytes (%) (Auto) 18 % (24-48) Monocytes (%) (Auto) 13 % (0-9) Eosinophils (%) (Auto) 4 % (0-3) Basophils (%) (Auto) 1 % (0-3) Neutrophils # (Auto) 4.3 x10^3uL (1.8-7.7) Lymphocytes # (Auto) 1.2 x10^3/uL (1.0-4.8) Monocytes # (Auto) 0.9 x10^3/uL (0.0-1.1) Eosinophils # (Auto) 0.3 x10^3/uL (0.0-0.7) Basophils # (Auto) 0.0 x10^3/uL (0.0-0.2) Sodium Level 134 mmol/L (136-145) Potassium Level 5.6 mmol/L (3.5-5.1) Chloride Level 99 mmol/L (98-107) Carbon Dioxide Level 31 mmol/L (21-32) Anion Gap 4 (6-14) Blood Urea Nitrogen 33 mg/dL (7-20) Creatinine 1.3 mg/dL (0.6-1.0) Estimated GFR (Cockcroft-Gault) 41.6 BUN/Creatinine Ratio 25 (6-20) Glucose Level 145 mg/dL (70-99) Lactic Acid Level 1.2 mmol/L (0.4-2.0) Calcium Level 9.2 mg/dL (8.5-10.1) Total Bilirubin 0.1 mg/dL (0.2-1.0) Aspartate Amino Transf (AST/SGOT) 11 U/L (15-37) Alanine Aminotransferase (ALT/SGPT) 14 U/L (14-59) Alkaline Phosphatase 107 U/L (46-116) Total Protein 7.2 g/dL (6.4-8.2) Albumin 2.8 g/dL (3.4-5.0) Albumin/Globulin Ratio 0.6 (1.0-1.7) Vital Signs: Vital Signs Date Time Temp Pulse Resp B/P (MAP) Pulse Ox O2 Delivery O2 Flow Rate FiO2 05/25/21 16:03 98.3 56 16 145/64 (91) 95 Nasal Cannula 3.0 (LAURITA RAMOS) Radiology/Procedures: Radiology/Procedures: PROCEDURE: FOOT LEFT 3V Exam: Left foot 3 views INDICATION: Ulceration TECHNIQUE: Frontal, lateral and oblique views of the left foot Comparisons: None FINDINGS: Diffuse soft tissue swelling is noted. Bone mineralization is normal. No acute or healed fractures. Amputation defect of the second digit. Joint spaces are well-maintained. IMPRESSION: Soft tissue swelling surrounding the foot without underlying osseous abnormality identified. Electronically signed by: Bronson Villalba MD (05/25/2021 5:09 PM) [place] (LAURITA RAMOS) Heart Score: C/O Chest Pain: No (LAURITA RAMOS) Course & Med Decision Making: Course & Med Decision Making Pertinent Labs and Imaging studies reviewed. (See chart for details) Patient states that her picker box operator wanted her to visit the emergency department for admission for IV antibiotics and an MRI of her left foot. I contacted Dr. Gary Alexander's office and was able to obtain her note from her visit today. X-ray report from podiatry is as follows: 3 views of the foot left : Possible subtle erosion at the second metatarsal head possibly consistent with acute osteomyelitis. Significant soft tissue swelling. No subcutaneous air. Consulted with Dr. Lira [facility] podiatry, who agrees to see patient tomorrow morning after transfer to [facility]. Dr. Gallegos is accepting physician at [facility]. (LAURITA RAMOS) Course & Med Decision Making I was the Attending physician on the above date of service of this patient. This patient was evaluated, examined, treated, and dispositioned from the emergency department by the mid-level practitioner. I reviewed case with DEV and agreed to need for hospital transfer and blasting entry specialist consultation as patient will likely require surgical intervention Electronically signed, Ambrosio Lui DO (AMBROSIO LUI DO) Vannesa Disclaimer: Vannesa Disclaimer: This electronic medical record was generated, in whole or in part, using a voice recognition dictation system. (LAURITA RAMOS) Departure Departure: Impression: Primary Impression: Infected stasis ulcer of left lower extremity Additional Impression: Cellulitis of left foot Disposition: 02 SHORT TERM HOSPITAL Condition: GUARDED Referrals: LONNIE VILLARREAL (PCP) LAURITA RAMOS May 25, 2021 17:00 AMBROSIO LUI DO May 26, 2021 06:25
--- NOTE | 2021-05-25 17:11 | RAD ---
Exam: Left foot 3 views INDICATION: Ulceration TECHNIQUE: Frontal, lateral and oblique views of the left foot Comparisons: None FINDINGS: Diffuse soft tissue swelling is noted. Bone mineralization is normal. No acute or healed fractures. A mputation defect of the second digit. Joint spaces are well-maintained. IMPRESSION: Soft tissue swelling surrounding the foot without underlying osseous abnormality identified. Electronically signed by: Bronson Villalba MD (05/25/2021 5:09 PM) [facility]
[2021-05-25 17:35] LABS: BASO % 1 % (0-3); EOS # 0.3 x10^3/uL (0.0-0.7); EOS % 4 % (0-3); HEMATOCRIT 29.6 % (36.0-47.0); HEMOGLOBIN 9.6 g/dL (12.0-15.5); LYMPH # 1.2 x10^3/uL (1.0-4.8); LYMPH % 18 % (24-48); MEAN CORPUSCULAR HEMOGLOBIN 27 pg (25-35); MEAN CORPUSCULAR HGB CONC 33 g/dL (31-37); MEAN CORPUSCULAR VOLUME 83 fL (79-100); MONO # 0.9 x10^3/uL (0.0-1.1); MONO % 13 % (0-9); NEUT # 4.3 x10^3uL (1.8-7.7); NEUT % 64 % (31-73); PLATELET COUNT 316 x10^3/uL (140-400); RED BLOOD COUNT 3.55 x10^6/uL (3.50-5.40); RED CELL DISTRIBUTION WIDTH 13.8 % (11.5-14.5); WHITE BLOOD COUNT 6.7 x10^3/uL (4.0-11.0)
[2021-05-25 17:40] LABS: CALCIUM 9.2 mg/dL (8.5-10.1); CREATININE 1.3 mg/dL (0.6-1.0); GFR 41.6; POTASSIUM 5.6 mmol/L (3.5-5.1)
[2021-05-25 17:46] LABS: ALBUMIN 2.8 g/dL (3.4-5.0); ALBUMIN/GLOBULIN RATIO 0.6 (1.0-1.7); TOTAL BILIRUBIN 0.1 mg/dL (0.2-1.0); TOTAL PROTEIN 7.2 g/dL (6.4-8.2)
[2021-05-25 20:15] VITALS: BP 164/72
== END 2021-05-25 20:28 | disposition short-term general hospital (02) ==
LOC: ER 15:42
DX: L03.116 Cellulitis of left lower limb (principal); I83.028 Varicose veins of left lower extremity with ulcer other part of lower leg; L97.829 Non-pressure chronic ulcer of other part of left lower leg with unspecified severity
CPT/HCPCS: 36415; 73630; 80053; 83605; 85025; 87040; 99285-25

== ENCOUNTER → 2021-08-02 | Outpatient (CLI) | payer MEDICARE ==
[2021-08-02 09:46] LABS: BASO # 0.1 x10^3/uL (0.0-0.2); BASO % 1 % (0-3); EOS # 0.3 x10^3/uL (0.0-0.7); EOS % 6 % (0-3); HEMATOCRIT 31.3 % (36.0-47.0); HEMOGLOBIN 9.9 g/dL (12.0-15.5); LYMPH # 1.8 x10^3/uL (1.0-4.8); LYMPH % 31 % (24-48); MEAN CORPUSCULAR HEMOGLOBIN 26 pg (25-35); MEAN CORPUSCULAR HGB CONC 32 g/dL (31-37); MEAN CORPUSCULAR VOLUME 82 fL (79-100); MONO # 0.6 x10^3/uL (0.0-1.1); MONO % 10 % (0-9); NEUT # 3.1 x10^3uL (1.8-7.7); NEUT % 53 % (31-73); PLATELET COUNT 268 x10^3/uL (140-400); RED BLOOD COUNT 3.82 x10^6/uL (3.50-5.40); RED CELL DISTRIBUTION WIDTH 14.5 % (11.5-14.5); WHITE BLOOD COUNT 5.9 x10^3/uL (4.0-11.0)
[2021-08-02 09:48] LABS: ALBUMIN 3.1 g/dL (3.4-5.0); ALBUMIN/GLOBULIN RATIO 0.8 (1.0-1.7); CALCIUM 8.4 mg/dL (8.5-10.1); CREATININE 1.7 mg/dL (0.6-1.0); GFR 30.5; POTASSIUM 5.2 mmol/L (3.5-5.1); TOTAL BILIRUBIN 0.2 mg/dL (0.2-1.0); TOTAL PROTEIN 7.1 g/dL (6.4-8.2)
[2021-08-02 18:23] LABS: % BANDS 3 % (0-9); % EOS 7 % (0-5); % LYMPHS 32 % (24-48); % MONOS 4 % (0-10); % MYELOS 2 % (0-0); % SEGS 52 % (35-66)
[2021-08-02 18:26] LABS: PLT ESTIMATE ADEQUATE (ADEQUATE)
== END ==
LOC: SPEC 09:10
PROVIDERS: ATTEND Family Medicine
DX: I10 Essential (primary) hypertension (principal); L97.529 Non-pressure chronic ulcer of other part of left foot with unspecified severity
CPT/HCPCS: 36415; 80053; 84145; 84484; 85007; 85025; 86140

== ENCOUNTER → 2021-09-03 | Outpatient (CLI) | payer MEDICARE ==
[2021-09-03 10:17] LABS: HEMATOCRIT 29.6 % (36.0-47.0); HEMOGLOBIN 9.3 g/dL (12.0-15.5); RED BLOOD COUNT 3.66 x10^6/uL (3.50-5.40); RED CELL DISTRIBUTION WIDTH 14.8 % (11.5-14.5); WHITE BLOOD COUNT 4.3 x10^3/uL (4.0-11.0)
[2021-09-03 10:31] LABS: ALBUMIN/GLOBULIN RATIO 0.8 (1.0-1.7); CALCIUM 8.7 mg/dL (8.5-10.1); GFR 56.2; TOTAL BILIRUBIN 0.2 mg/dL (0.2-1.0); TOTAL PROTEIN 6.8 g/dL (6.4-8.2)
== END ==
LOC: SPEC 09:43
PROVIDERS: ATTEND Family Medicine
DX: I10 Essential (primary) hypertension (principal); L97.529 Non-pressure chronic ulcer of other part of left foot with unspecified severity; E11.9 Type 2 diabetes mellitus without complications; E46 Unspecified protein-calorie malnutrition
CPT/HCPCS: 36415; 80053; 83540; 85027

== ENCOUNTER → 2021-09-17 | Outpatient (CLI) | payer MEDICARE ==
[2021-09-17 09:20] LABS: BASO % 1 % (0-3); EOS # 0.5 x10^3/uL (0.0-0.7); EOS % 16 % (0-3); HEMATOCRIT 28.5 % (36.0-47.0); HEMOGLOBIN 8.8 g/dL (12.0-15.5); LYMPH # 0.9 x10^3/uL (1.0-4.8); LYMPH % 29 % (24-48); MEAN CORPUSCULAR HEMOGLOBIN 25 pg (25-35); MEAN CORPUSCULAR HGB CONC 31 g/dL (31-37); MEAN CORPUSCULAR VOLUME 81 fL (79-100); MONO # 0.4 x10^3/uL (0.0-1.1); MONO % 14 % (0-9); NEUT # 1.3 x10^3uL (1.8-7.7); NEUT % 41 % (31-73); PLATELET COUNT 211 x10^3/uL (140-400); RED BLOOD COUNT 3.52 x10^6/uL (3.50-5.40); WHITE BLOOD COUNT 3.1 x10^3/uL (4.0-11.0)
[2021-09-17 09:26] LABS: ALBUMIN 2.8 g/dL (3.4-5.0); ALBUMIN/GLOBULIN RATIO 0.8 (1.0-1.7); CALCIUM 8.5 mg/dL (8.5-10.1); CREATININE 0.9 mg/dL (0.6-1.0); GFR 63.4; POTASSIUM 4.7 mmol/L (3.5-5.1); TOTAL BILIRUBIN 0.2 mg/dL (0.2-1.0); TOTAL PROTEIN 6.5 g/dL (6.4-8.2)
[2021-09-17 21:18] LABS: CHOLESTEROL/HDL RATIO 3.1
== END ==
LOC: SPEC 08:53
PROVIDERS: ATTEND Family Medicine
DX: N17.0 Acute kidney failure with tubular necrosis (principal); D50.9 Iron deficiency anemia, unspecified
CPT/HCPCS: 36415; 80053; 80061; 83540; 85025

== ENCOUNTER → 2021-10-12 | Outpatient (CLI) | payer MEDICARE ==
[2021-10-12 10:12] LABS: BASO % 1 % (0-3); EOS # 0.2 x10^3/uL (0.0-0.7); EOS % 5 % (0-3); HEMATOCRIT 29.2 % (36.0-47.0); HEMOGLOBIN 8.9 g/dL (12.0-15.5); LYMPH # 0.8 x10^3/uL (1.0-4.8); LYMPH % 15 % (24-48); MEAN CORPUSCULAR HEMOGLOBIN 25 pg (25-35); MEAN CORPUSCULAR HGB CONC 31 g/dL (31-37); MEAN CORPUSCULAR VOLUME 80 fL (79-100); MONO # 0.4 x10^3/uL (0.0-1.1); MONO % 8 % (0-9); NEUT # 3.7 x10^3uL (1.8-7.7); NEUT % 71 % (31-73); PLATELET COUNT 253 x10^3/uL (140-400); RED BLOOD COUNT 3.64 x10^6/uL (3.50-5.40); RED CELL DISTRIBUTION WIDTH 14.7 % (11.5-14.5); WHITE BLOOD COUNT 5.2 x10^3/uL (4.0-11.0)
== END ==
LOC: SPEC 09:52
PROVIDERS: ATTEND Family Medicine
DX: E11.621 Type 2 diabetes mellitus with foot ulcer (principal); N17.0 Acute kidney failure with tubular necrosis; J44.9 Chronic obstructive pulmonary disease, unspecified; L03.116 Cellulitis of left lower limb
CPT/HCPCS: 36415; 83540; 84466; 85025

== ENCOUNTER 2021-11-12 03:23 | Emergency (ER) | payer MEDICARE ==
[~2021-11-12] VITALS: Ht 167.6 cm; Wt 151.2 kg
--- NOTE | 2021-11-12 03:31 | PHYS DOC ---
Past History Past Medical History: COPD, Diabetes, Hypertension, Other Additional Past Medical Histor: obesity Past Surgical History: Other Additional Past Surgical Histo: 2nd toe amputation left foot Alcohol Use: None Drug Use: None General Adult EDM: Chief Complaint: WEAKNESS/GENERALIZED HPI: HPI: " I ve been so weak.. I get short of breat."" I ve been short of breath.. if I do very much..." Patient is a [age] year old female who presents with above hx and complaints of weakness with dyspnea. Patient has got flu vaccination and COVID vaccination. No history of Pneumovax. No recent travel. No specific ill contacts. Patient normally . follows with Jack[facility] and Dr. Tran for care. Review of Systems: Review of Systems: Constitutional: Denies fever or chills Eyes: Denies change in visual acuity HENT: Denies nasal congestion or sore throat Respiratory: Denies cough or shortness of breath Cardiovascular: Complaints of chest pain and edema GI: Denies abdominal pain, nausea, vomiting, bloody stools or diarrhea : Denies dysuria Musculoskeletal: Denies back pain or joint pain Integument: Denies rash Neurologic: Denies headache, focal weakness or sensory changes Endocrine: Denies polyuria or polydipsia Lymphatic: Denies swollen glands Psychiatric: Denies depression or anxiety Family History: Family History: DM, HTN Allergies: Allergies: Allergies Coded Allergies Type Severity Reaction Last Updated Verified latex Allergy Intermediate Hives 08/17/19 Yes Physical Exam: PE: Constitutional: Moderate acute distress, non-toxic appearance. [] HENT: Normocephalic, atraumatic, bilateral external ears normal, oropharynx moist, no oral exudates, nose normal. [] Eyes: PERRLA, EOMI, conjunctiva normal, no discharge. [] Neck: Normal range of motion, no tenderness, supple, no stridor. [] Cardiovascular: Tachycardia heart rate regular rhythm, no murmur []. PMI to the left. Lungs & Thorax: Bilateral breath sounds equal apex with bibasilar crackles throughout on auscultation [] Abdomen: Bowel sounds normal, soft, no tenderness, no masses, no pulsatile masses. Morbid obesity. Skin: Warm, dry, no erythema, no rash. Poor turgor Back: No tenderness, no CVA tenderness. [] Extremities: No tenderness, no cyanosis, no clubbing, ROM intact, lower leg edema. Toe amputation patient's left Neurologic: Alert and oriented X 3, normal motor function, normal sensory function, no focal deficits noted. [] Psychologic: Affect anxious, judgement normal, mood normal. [] EKG: EKG: My interpretation EKG shows a sinus tachycardia 109 bpm. Anterior lateral strain pattern. No findings of acute STEMI with contralateral changes.. Abnormal EKG. Reading was 0430 hrs. [] Radiology/Procedures: Radiology/Procedures: [address] [address] IMAGING REPORT Signed PATIENT: LOIS MALDONADO: [id number] : 1960 LOCATION: ER AGE: 61 SEX: F EXAM STATUS: REG ER ORD. PHYSICIAN: CATHRYN HOWELL MD REASON: dyspnea PROCEDURE: PORTABLE CHEST 1V Study: XR CHEST 1V Indication: Dyspnea. Comparison: 08/17/2019 Findings: The cardiomediastinal silhouette is enlarged. Plethoric central vasculature. Ill-defined branching airspace opacities on the right and left and hazy increased attenuation at the lower lungs. Increased interstitial markings and a component of atelectasis. Suspected small pleural effusion on the left. No pneumothorax. Impression: Abnormalities favored related to congestive heart failure/volume overload, as above. A superimposed infectious process remains possible. Electronically signed by: JIM SCHWARZ MD (11/12/2021 4:13 AM) [facility] DICTATED AND SIGNED BY: JIM SCHWARZ MD DATE: 11/12/21410 CC: CATHRYN HOWELL MD; LONNIE VILLARREAL ~ [][address] [address] IMAGING REPORT Signed PATIENT: LOIS MALDONADO: [id number] : 1960 LOCATION: ER AGE: 61 SEX: F EXAM STATUS: REG ER ORD. PHYSICIAN: CATHRYN HOWELL MD REASON: Weakness, near syncope PROCEDURE: CT HEAD WO CONTRAST STUDY: CT head without contrast INDICATION: Weakness. Near syncope. COMPARISON: None recently. TECHNIQUE: Axial CT imaging through the head without the use of intravenous contrast. Sagittal and coronal reformats were obtained. One or more of the following individualized dose reduction techniques were utilized for this examination: 1. Automated exposure control 2. Adjustment of the mA and/or kV according to patient size 3. Use of iterative reconstruction technique. FINDINGS: No acute intracranial hemorrhage. Tom-white matter differentiation is maintained. No localized mass effect, midline shift or hydrocephalus. Intracranial calcific atherosclerosis. Hyperostosis frontalis interna. Scattered odontogenic disease. No fluid within the paranasal sinuses or mastoid air cells. IMPRESSION: No acute intracranial abnormality by CT. Electronically signed by: JIM SCHWARZ MD (11/12/2021 4:23 AM) [facility] DICTATED AND SIGNED BY: JIM SCHWARZ MD DATE: 11/12/21419 CC: CATHRYN HOWELL MD; LONNIE VILLARREAL ~ Heart Score: C/O Chest Pain: Yes HEART Score for Chest Pain: HEART Score for Chest Pain Response (Comments) Value History Moderately Suspicious 1 ECG Nonspecific Repolarizatio 1 Age >45 - < 65 1 Risk Factors 1 or 2 Risk Factors 1 Troponin >1-<3x Normal Limit 1 Total 5 Risk Factors: Risk Factors: DM, Current or recent (<one month) smoker, HTN, HLP, family history of CAD, obesity. Risk Scores: Score 0 - 3: 2.5% MACE over next 6 weeks - Discharge Home Score 4 - 6: 20.3% MACE over next 6 weeks - Admit for Clinical Observation Score 7 - 10: 72.7% MACE over next 6 weeks - Early Invasive Strategies Course & Med Decision Making: Course & Med Decision Making Pertinent Labs and Imaging studies reviewed. (See chart for details) Discussed presentation, testing and tx. plan with Aly Salinas- will accept pt at [facility]. Pt. endorsed to Dr. Cho at shift change pending her transfer to [facility] Impression: 1. Weakness 2. CHF diastolic dysfunction- 1530 3. Accelerated hypertension 4. History of COPD 5. Diabetes 6. Morbid obesity 7. History of hypothyroidism 8. History of coronary artery disease -stents x10 9. Hx. Lt. Toe amputations 10.Elevated Trop. 66 [] Dragon Disclaimer: Dragon Disclaimer: This electronic medical record was generated, in whole or in part, using a voice recognition dictation system. Departure Departure: Referrals: LONNIE VILLARREAL (PCP) Vannesa Disclaimer This chart was dictated in whole or in part using Voice Recognition software in a busy, high-work load, and often noisy Emergency Department environment. It may contain unintended and wholly unrecognized errors or omissions. Dragon Disclaimer This chart was dictated in whole or in part using Voice Recognition software in a busy, high-work load, and often noisy Emergency Department environment. It may contain unintended and wholly unrecognized errors or omissions. CATHRYN HOWELL MD Nov 12, 2021 03:31
[2021-11-12] MEDS ORDERED: IV RINGERS SOLUTION,LACTATED 1,000 ML IV SCH (04:00)
[2021-11-12] MEDS ORDERED: ALBUTEROL SULFATE 8GM INHALER. INH ONE (04:00)
--- NOTE | 2021-11-12 04:16 | RAD ---
Study: XR CHEST 1V Indication: Dyspnea. Comparison: 08/17/2019 Findings: The cardiomediastinal silhouette is enlarged. Plethoric central vasculature. Ill-defined branching ai rspace opacities on the right and left and hazy increased attenuation at the lower lungs. Increased i nterstitial markings and a component of atelectasis. Suspected small pleural effusion on the left. No pneumothorax. Impression: Abnormalities favored related to congestive heart failure/volume overload, as above. A superimposed i nfectious process remains possible. Electronically signed by: JIM SCHWARZ MD (11/12/2021 4:13 AM) [facility]
--- NOTE | 2021-11-12 04:25 | RAD ---
STUDY: CT head without contrast INDICATION: Weakness. Near syncope. COMPARISON: None recently. TECHNIQUE: Axial CT imaging through the head without the use of intravenous contrast. Sagittal and co finn reformats were obtained. One or more of the following individualized dose reduction techniques were utilized for this examinat ion: 1. Automated exposure control 2. Adjustment of the mA and/or kV according to patient size 3. Use of iterative reconstruction technique. FINDINGS: No acute intracranial hemorrhage. Tom-white matter differentiation is maintained. No localized mass effect, midline shift or hydrocephalus. Intracranial calcific atherosclerosis. Hyperostosis frontalis interna. Scattered odontogenic disease. No fluid within the paranasal sinuses or mastoid air cells. IMPRESSION: No acute intracranial abnormality by CT. Electronically signed by: JIM SCHWARZ MD (11/12/2021 4:23 AM) [facility]
[2021-11-12] MEDS ORDERED: cloNIDine HCL 0.1 MG TABLET PO ONE (04:30)
[2021-11-12] MEDS ORDERED: cloNIDine TTS-2 1 PATCH PATCH TD ONE (04:30)
--- NOTE | 2021-11-12 04:55 | EKG ---
[address] [address] Test Date: 2021-11-12 Test Time: 04:30:58 Pat Name: LOIS MALDONADO Department: Room: Gender: F Health Technical Writer: : 1960 Requested By: CATHRYN HOWELL Order Number: [id number] Reading MD: Odell Camilo Measurements Intervals [place] Rate: 109 P: 36 [place]: 158 QRS: 1 QRSD: 84 T: 58 QT: 314 QTc: 424 Interpretive Statements SINUS TACHYCARDIA MILD NON SPECIFIC ST CHANGES Electronically Signed On 11-14-2021 17:07:51 CDT by Odell Camilo
[2021-11-12] MEDS ORDERED: FUROSEMIDE 40 MG/4 ML VIAL IVP ONE (05:30)
[2021-11-12 05:55] LABS: BASO % 0 % (0-3); EOS # 0.1 x10^3/uL (0.0-0.7); EOS % 1 % (0-3); HEMOGLOBIN 9.9 g/dL (12.0-15.5); LYMPH # 0.6 x10^3/uL (1.0-4.8); LYMPH % 5 % (24-48); MEAN CORPUSCULAR HEMOGLOBIN 25 pg (25-35); MEAN CORPUSCULAR HGB CONC 31 g/dL (31-37); MEAN CORPUSCULAR VOLUME 80 fL (79-100); MONO # 0.7 x10^3/uL (0.0-1.1); MONO % 7 % (0-9); NEUT # 9.8 x10^3uL (1.8-7.7); NEUT % 87 % (31-73); PLATELET COUNT 238 x10^3/uL (140-400); RED CELL DISTRIBUTION WIDTH 15.2 % (11.5-14.5); WHITE BLOOD COUNT 11.3 x10^3/uL (4.0-11.0)
[2021-11-12 05:57] LABS: CALCIUM 8.8 mg/dL (8.5-10.1); CREATININE 0.9 mg/dL (0.6-1.0); GFR 63.4; POTASSIUM 5.8 mmol/L (3.5-5.1)
[2021-11-12 06:05] LABS: INFLUENZA A PATIENT NEGATIVE (NEGATIVE); INFLUENZA B PATIENT NEGATIVE (NEGATIVE)
[2021-11-12 06:10] LABS: ALBUMIN 2.9 g/dL (3.4-5.0); DIRECT BILIRUBIN 0.1 mg/dL (0.0-0.2); MAGNESIUM 1.7 mg/dL (1.8-2.4); TOTAL BILIRUBIN 0.4 mg/dL (0.2-1.0); TOTAL PROTEIN 6.7 g/dL (6.4-8.2)
[2021-11-12 07:49] VITALS: BP 119/67
[2021-11-12 20:26] LABS: THYROID STIM HORMONE (TSH) 0.911 uIU/mL (0.358-3.740)
== END 2021-11-12 08:30 | disposition short-term general hospital (02) ==
LOC: ER 03:23
DX: I11.0 Hypertensive heart disease with heart failure (principal); I50.30 Unspecified diastolic (congestive) heart failure; J44.9 Chronic obstructive pulmonary disease, unspecified; E11.9 Type 2 diabetes mellitus without complications; E66.01 Morbid (severe) obesity due to excess calories; E03.9 Hypothyroidism, unspecified; I25.10 Atherosclerotic heart disease of native coronary artery without angina pectoris; R77.8 Other specified abnormalities of plasma proteins; Z20.822 Contact with and (suspected) exposure to COVID-19; Z68.43 Body mass index [BMI] 50.0-59.9, adult; Z89.422 Acquired absence of other left toe(s); Z91.040 Latex allergy status
CPT/HCPCS: 36415; 70450; 71045; 80048; 80061; 80076; 82550; 83690; 83735; 83880; 84443; 84484; 85025; 85379; 85610; 85730; 87040; 87428; 93005; 94640; 96361; 96374; 99285; J1940; J7120; 94664